=== PATIENT | female | born 1955 | race Caucasian/White ===

== ENCOUNTER 2020-08-06 04:13 | Inpatient (IN) | payer OTHER ==
[~2020-08-06] VITALS: Ht 165.1 cm; Wt 81.6 kg
[2020-08-06 04:30] VITALS: BP 221/80
[2020-08-06] MEDS ORDERED: LEVEMIR100 UNIT/1 (04:33)
[2020-08-06] MEDS ORDERED: COZAAR 25 MG TA25 M1 PO (04:33)
[2020-08-06 05:22] LABS: ABSOLUTE BASOPHILS 0.1 thou/uL (0.0-0.2); ABSOLUTE LYMPHOCYTES 1.1 thou/uL (0.8-5.3); ABSOLUTE MONOCYTES 0.3 thou/uL (0.0-1.2); ABSOLUTE NEUTROPHILS 7.7 thou/uL (1.6-8.1); BASOPHILS 0.8 %; EOSINOPHILS 0.1 %; HEMOGLOBIN 14.6 gm/dL (12.0-15.0); LYMPHOCYTES 11.6 %; MCH 30.7 pg (26.0-34.0); MCHC 34.8 g/dL (28.0-37.0); MCV 88.2 fL (80.0-100.0); MONOCYTES 2.8 %; NUCLEATED RBCS 0 /100WBC; PLATELET COUNT* 270 thou/uL (150-400); POLYS 84.7 %; RBC 4.76 mil/uL (4.20-5.00); RDW-CV 12.9 % (10.5-14.5); WBC 9.1 thou/uL (4.0-11.0)
[2020-08-06 05:35] LABS: CREATININE 0.8 mg/dL (0.6-1.3); POTASSIUM 3.5 mmol/L (3.5-5.1)
[2020-08-06 05:40] LABS: TOTAL BILIRUBIN 1.8 mg/dL (<0.1-1.0); TOTAL PROTEIN 8.4 g/dL (6.4-8.2)
[2020-08-06 05:44] LABS: URINE BILIRUBIN NEGATIVE (Negative); URINE BLOOD NEGATIVE (Negative); URINE CLARITY CLEAR; URINE COLOR YELLOW; URINE GLUCOSE-RANDOM 3+ (Negative); URINE KETONES 1+ (Negative); URINE LEUKOCYTES-REFLEX NEGATIVE (Negative); URINE NITRITE-REFLEX NEGATIVE (Negative); URINE PROTEIN TRACE (Negative); URINE UROBILINOGEN 0.2 E.U./dl (0.2-1.0)
[2020-08-06 07:37] LABS: APTT 26.8 Seconds (25.0-31.3); PROTIME 10.5 Seconds (9.20-11.50)
[2020-08-06 16:32] VITALS: BP 159/68
[2020-08-06 17:06] VITALS: BP 124/67
--- NOTE | 2020-08-06 17:08 | NUR ---
PT ADMITED WITH CHOLECYSTITIS. PT ORIENTED TO ROOM. PT ALERT AND ORIENTED. FALL RISK PRECAUTIONS IN PLACE. WILL CONTINUE TO MONITOR.
--- NOTE | 2020-08-06 17:22 | NUR ---
PT REMAINED ALERT AND ORIENTED. PT RESTING IN BED. PT C/O NAUSEA AND PAIN, MEDS GIVEN ORDERED., FALL RISK PRECAUTIONS IN PLACE. HOURLY ROUNDING COMPLETED. WILL CONTINUE TO MONITOR.
[2020-08-06 19:00] VITALS: BP 151/67
--- NOTE | 2020-08-07 04:52 | NUR ---
PT A&OX4, VSS ON ROOM AIR, PT UP AD ZANE, IV FLUIDS INFUSING ORDERED, NO C/O PAIN THIS SHIFT. HOURLY ROUNDINGS COMPLETE, WILL CONTINUE TO MONITOR.
[2020-08-07 06:11] LABS: HEMATOCRIT 37.7 % (37.0-47.0); MCH 29.9 pg (26.0-34.0); MCHC 33.2 g/dL (28.0-37.0); MCV 90.2 fL (80.0-100.0); MPV 7.9 fl. (7.2-11.1); RBC 4.18 mil/uL (4.20-5.00); RDW-CV 12.9 % (10.5-14.5); WBC 11.1 thou/uL (4.0-11.0)
[2020-08-07 06:16] LABS: HEMOGLOBIN 12.5 gm/dL (12.0-15.0)
[2020-08-07 06:31] LABS: CREATININE 1.1 mg/dL (0.6-1.3); MAGNESIUM 2.1 mg/dL (1.8-2.4); TOTAL BILIRUBIN 2.6 mg/dL (<0.1-1.0); TOTAL PROTEIN 6.7 g/dL (6.4-8.2)
[2020-08-07] MEDS ORDERED: TRANSDERM-SCOP1 EACH TRANSDERM (08:23)
[2020-08-07 08:25] VITALS: BP 131/64
[2020-08-07 11:20] VITALS: BP 131/64
--- NOTE | 2020-08-07 12:00 | NUR ---
PATIENT DISCHARGED TO HOME. DISCHARGE PAPERS REVIEWED AND SIGNED. PRESCRIPTION AND INFORMATION SHEETS GIVEN. IV REMOVED. PATIENT DENIES ANY FURTHER NEEDS. PATIENT TAKEN BY WHEELCHAIR TO EXIT. LEFT WITH .
[2020-08-07 12:49] VITALS: BP 131/64
--- NOTE | 2020-08-07 14:03 | EKG ---
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
== END 2020-08-07 12:00 | disposition home or self-care (01) | DRG 446 ==
LOC: M.ERS 04:13 → M.TBA-ER 08:59 → M.3W 16:42
PROVIDERS: Personal Emergency Response Attendant; ADMIT Internal Medicine; ATTEND Internal Medicine
DX: K80.10 Calculus of gallbladder with chronic cholecystitis without obstruction (principal); E11.9 Type 2 diabetes mellitus without complications; I10 Essential (primary) hypertension; Z20.828 Contact with and (suspected) exposure to other viral communicable diseases; Z79.4 Long term (current) use of insulin; Z79.899 Other long term (current) drug therapy

== ENCOUNTER → 2020-08-12 | Outpatient (CLI) | payer OTHER ==
[~2020-08-12] MED LIST: ASA81BEC PO; COZAAR 25 MG TA25 M1 PO; LEVEMIR100 UNIT/1; LEVEMIR100 UNIT/1 SUBQ; OXYCODONE HCL 55 MG PO; TRANSDERM-SCOP1 EACH TRANSDERM
== END ==
LOC: M.LAB 09:11
PROVIDERS: ATTEND Surgery
DX: Z01.812 Encounter for preprocedural laboratory examination (principal); Z20.828 Contact with and (suspected) exposure to other viral communicable diseases; K80.20 Calculus of gallbladder without cholecystitis without obstruction

== ENCOUNTER 2020-08-17 09:38 | Observation (INO) | payer OTHER ==
[~2020-08-17] VITALS: Ht 165.1 cm; Wt 88.0 kg
--- NOTE | ~2020-08-17 | H ---
[address] [address] HISTORY AND PHYSICAL Name: COREYAleksandar NAVA Room: [address] [place] Bailey#: [id number] Admission: 08/17/20 Attend Phys: Dano Bailey Discharge: 08/18/20 Date of : 59 Report #: [id number] THIS REPORT FOR: //name// cc: George Duran MD, Tuongvan T. MD ~ For History and Physical please refer to the consultation note in the patient's medical record from previous stay. By: [id number] Records Staff [facility]
[~2020-08-17 09:38] MED LIST changes: -OXYCODONE HCL 55 MG PO
[2020-08-17] MEDS ORDERED: OXYCODONE HCL 55 MG PO (15:21)
[2020-08-17 17:10] VITALS: BP 185/76
--- NOTE | 2020-08-17 17:10 | NUR ---
PATIENT ARRIVED FROM PACU AT THIS TIME. PATIENT SETTLED TO ROOM. HISTORY, ASSESSMENT AND VITALS COMPLETED. PATIENT HAS COMPLAINTS OF MILD PAIN. PATIENT HAS COMPLINTS OF NAUSEA, PHENERGAN GIVEN PRIOR TO TRANSFER. PATIENT IS UP STANDBY ASSIST TO COMMODE. CALL LIGHT WITHIN REACH. WILL CONTINUE TO MONITOR.
--- NOTE | 2020-08-17 18:19 | NUR ---
PATIENT RESTING IN BED. PATIENT HAS COMPLAINTS OF PAIN TO LEFT FOOT, TREATED ADEQUTELY WITH MEDICATION. PATIENT WORKED WITH THERAPY THIS AFTERNOON BUT WAS UNABLE TO GET OUT OF BED. PATIENT USES BEDPAN. PATIENT HAS GOOD APPETITE. PATIENT DENIES ANY NEEDS AT THIS TIME. CALL LIGHT WITHIN REACH.
[2020-08-17 20:00] VITALS: BP 186/76
[2020-08-18 00:30] VITALS: BP 159/70
[2020-08-18 04:54] LABS: CALCIUM 8.7 mg/dL (8.5-10.1); CREATININE 0.8 mg/dL (0.6-1.3)
--- NOTE | 2020-08-18 05:05 | NUR ---
PATIENT SLEPT WELL DURING THIS SHIFT. PT ABLE TO PIVOT TO [facility] AND VOID YELLOW URINE. PT DENIES PAIN DURING THIS SHIFT. PT GIVEN SNACK THIS AM. PT ON O2 @ 2 LITERS PER NASAL CANNULA BUT WAS TAKEN OFF THIS AM BY RT WHEN SATS WERE 95% RA. PT REQUESTED SNACK THIS AM; HOT TEA AND CASEY CRACKERS PROVIDED. FLUIDS INFUSING PER DR Ric JACKMAN. FREQUENTLY USED ITEMS AND CALL LIGHT WITHIN REACH. SIDERAILS UPX2. WILL CONTINUE TO MONITOR.
[2020-08-18 07:50] VITALS: BP 131/61
[2020-08-18 10:43] VITALS: BP 131/61
--- NOTE | 2020-08-18 12:15 | NUR ---
PATIENT DISCHARGED TO HOME. DISCHARGE PAPERS REVIEWED AND SIGNED. PRESCRIPTIONS AND INFORMATION SHEETS GIVEN. IV REMOVED. PATIENT DENIES ANY FURTHER NEEDS. PATIENT TAKEN BY WHEELCHAIR TO EXIT. LEFT WITH .
[2020-08-18 12:18] VITALS: BP 131/61
--- NOTE | 2020-08-22 10:06 | PATH ---
[address] [address] PATHOLOGY RPT PROCEDURE Name: DAVID SYKES BRANDY Room: [address] [place] Bailey#: [id number] Admission: 08/17/20 Date of : 59 Discharge: 08/18/20 Report #: [id number] Path Case #: [id number] [facility] Accession Number: [id number] . 01 Material submitted: . gallbladder - GALLBLADDER AND CONTENTS . 01 Clinical history: . CHOLELITHIASIS . 02 Diagnosis: "Gallbladder and contents", cholecystectomy: - Acute on chronic cholecystitis. - Cholelithiasis. . (CLW:mml; 08/19/2020) [facility] 08/19/2020 1656 Local . 02 Electronically signed: . Daphne Robbins MD, Pathologist NPI- [id number] . 01 Gross description: . Received in formalin labeled "David Sykes, gallbladder and contents" is an intact cholecystectomy specimen measuring 8.2 x 3.8 x 2.9 cm. The serosa is fuentes-red and hemorrhagic and the specimen is opened to reveal fuentes-green velvety mucosa without polyps or masses. The average wall thickness is 0.2 cm. Multiple multifaceted black calculi fill the entire gallbladder lumen and cystic neck, possibly obstructing the cystic duct, measuring in aggregate 6.5 x 4.4 x 2.5 cm and ranging from 0.1-2.2 cm in greatest dimension. Pipe Changer sections of the fundus and body and the cystic duct margin are submitted in A1. ([facility]; 08/18/2020) [facility] 08/18/20201954 Local . 02 Pathologist provided ICD-10: K80.12 . 02 CPT . 791463 Specimen Comment: A courtesy copy of this report has been sent to [phone] Specimen Comment: [id number] Specimen Comment: Report sent to / DR RAMIREZ Performed at: [address] [facility] [address] [id number] MD Tim Barry MD Phone: [phone] Performed at: 02 [place] [address] PATHOLOGY RPT PROCEDURE Name: DAVID SYKES Room: [address] BECKI Bailey#: [id number] Admission: 08/17/20 Date of : 59 Discharge: 08/18/20 Report #: [id number] Path Case #: [id number] [facility] [address], [place], [place] [id number] MD Linda Hernandez MD Phone: [phone]
--- NOTE | 2020-08-23 09:06 | OP ---
[address] [address] OPERATIVE REPORT Name: DAVID BANEGAS Room: [address] [place] Bailey#: [id number] Admission: 08/17/20 Attend Phys: Dano Bailey Discharge: 08/18/20 Date of : 59 Report #: [id number] THIS REPORT FOR: //name// cc: George Duran MD, Tuongvan T. MD ~ CC: Hayden Duran MD DICTATED BY: Richard Silver DO DATE OF SERVICE: 08/17/2020 PREOPERATIVE DIAGNOSIS: Symptomatic cholelithiasis and hyperbilirubinemia. POSTOPERATIVE DIAGNOSIS: Symptomatic cholelithiasis and hyperbilirubinemia. SURGEON: Hayden Vick DO. NAUTICAL INSTRUMENT MECHANIC: Richard Silver, PGY5 and Hira Pineda, PGY1. OPERATION PERFORMED: Laparoscopic cholecystectomy, intraoperative cholangiogram with surgeon interpretation of images. ANESTHESIA: General and nerve block. ESTIMATED BLOOD LOSS: 15 mL. SPECIMEN: Gallbladder. COMPLICATIONS: None. ____ FLUOROSCOPY TIME: 43 seconds. CONTRAST: 20 mL. FINDINGS: Stones within the cystic duct that were milked out via a cystic ductotomy. There was delay but adequate filling into the duodenum via the common bile duct. INDICATIONS: The patient is a 65-year-old female who recently presented to the Emergency Department with complaints of epigastric pain. She was found on imaging to have a distended gallbladder and gallstones as well as [facility] [address] [place] [address] OPERATIVE REPORT Name: DAVID BANEGAS Room: [address] [place] Bailey#: [id number] Admission: 08/17/20 Attend Phys: Dano Bailey Discharge: 08/18/20 Date of : 59 Report #: [id number] hyperbilirubinemia. The hyperbilirubinemia improved. She was informed of the various management options and elected to be discharged home. She was set-up for elective cholecystectomy and intraoperative cholangiogram. She was informed of the risks and benefits of laparoscopic cholecystectomy with IOC with risks including, but not limited to bleeding, infection, bile duct injury, bowel injury, hernia formation, need for open procedure, need for reoperation, chronic diarrhea. She voiced understanding of these risks and elected to proceed with surgery. DESCRIPTION OF PROCEDURE: After informed consent was obtained, the patient was brought to the operating room and placed in supine position. SCDs were on and running. Preoperative antibiotics were given. General anesthesia was administered with an ET tube. The patient was prepped and draped in the usual sterile fashion. A surgical pause was held to confirm proper patient and procedure. A vertical supraumbilical incision was made with a #11-blade. Dissection was carried through the subcutaneous tissue using S retractors until the fascia was identified. Fascia was scored using cautery. Fascia was elevated with Kochers. Peritoneum was bluntly entered using a Paris. Bilateral stay sutures were placed using 0 Vicryl. Anne-Marie trocar was introduced and secured. Abdomen was insufflated. The patient was positioned head up and right side up. A 5 mm port was placed in the epigastrium under direct visualization. The two additional 5 mm ports were placed in the right upper quadrant under direct visualization. There was omental fat overlying the gallbladder preventing visualization of the gallbladder. These omental adhesions were dense. They were taken down using cautery with care to stay away from other structures in the right upper quadrant such as transverse colon or the duodenum. Once the gallbladder was visualized, it was grasped and retracted cephalad. Cautery was used to take down the omental adhesions that completely exposed the gallbladder. There were also some dense adhesions between the hepatocystic triangle and the duodenum, which were gently swept away staying high on the gallbladder and away from the duodenum. Cautery was then used to develop a plane over Jim pouch and the peritoneum, which was extended laterally and medially. Blunt dissection using the suction foreclosure field inspector as well as with [place] dissector was used to circumferentially dissect the cystic duct and the cystic artery. Once a critical view of safety was obtained with two and only two structures, a cholangiogram was performed and the Vela clamp was inserted and clamped across Jim pouch and the catheter was advanced into the Jim pouch as well as into the cystic duct; however, the catheter was unable to advance. A [place] grasper was used to palpate the cystic duct and there were several stones and much debris not permitting passage of the catheter into the cystic duct. The cystic duct debris and stones were milked back using the [place] dissector gently until an adequate path was created. A 5 mm clip betting clerk was then used to place a medium clip across the distalmost cystic duct. Laparoscopic fabricio were used to create a ductotomy. Some of the debris [place] [address] OPERATIVE REPORT Name: DAVID BANEGAS Room: [address] [place] Bailey#: [id number] Admission: 08/17/20 Attend Phys: Dano Bailey Discharge: 08/18/20 Date of : 59 Report #: [id number] stones were milked out of the duct via the ductotomy. Once this was performed, an Arrow catheter was placed through one of the 5 mm trocars and into the cystic duct and secured using a balloon. A cholangiogram was then performed. There was prompt filling of the cystic duct, the hepatic duct and the right and left hepatic ducts. The common bile duct filled promptly and did not appear enlarged. There was some delayed filling of the duodenum; however, with ongoing infusion of the contrast, the contrast spilled into the duodenum and this was achieved with repeated attempts. There did not appear to be any clear filling defects at the distal common bile duct. The patient was repositioned head up and right side up. The balloon was taken down and catheter was removed. Clip betting clerk was used to place 3 clips across the proximal cystic duct proximal to the ductotomy. The cystic artery was doubly clipped. Fabricio were used to divide the cystic artery and the cystic duct. Gallbladder was then elevated and dissected free from the liver bed using cautery. Once completely free, it was placed within an EndoCatch bag and placed aside. Cautery was used to obtain hemostasis of the liver. Surgicel in 3 divided pieces was brought into the abdomen, placed in the gallbladder fossa to assist with hemostasis. Right upper quadrant was thoroughly irrigated and suctioned. The patient was repositioned supine. The trocars were removed under direct visualization. The abdomen was desufflated. The specimen was removed through the umbilical incision. Previous stay sutures were elevated. A single [id number] using 0 Vicryl was used to close the fascia. This wound was closed in layered fashion using 3-0 Vicryl, 4-0 Monocryl. Remainder of skin was closed using 4-0 Monocryl. Wounds were cleansed and dressed with Dermabond. The patient underwent bilateral transversus abdominis plane blocks by Anesthesia. She was then emerged from anesthesia and transferred to the PACU in stable condition. All counts were correct. <ELECTRONICALLY SIGNED> By: Hayden Vick DO 08/23/20 0906 1437 [id number] Vick DO /nt
== END 2020-08-18 12:15 | disposition home or self-care (01) ==
LOC: M.SUR 09:38 → M.TBA-ER 16:47 → M.3W 16:47
PROVIDERS: ADMIT Surgery; ATTEND Surgery
DX: K80.00 Calculus of gallbladder with acute cholecystitis without obstruction (principal); R11.2 Nausea with vomiting, unspecified